=== PATIENT | male | born 1935 | race Caucasian/White ===

== ENCOUNTER 2016-06-08 23:42 | Emergency (ER) | END 2016-06-09 01:41 | disposition home or self-care (01) | DX: I10 Essential (primary) hypertension (principal); Z79.82 Long term (current) use of aspirin; Z87.891 Personal history of nicotine dependence ==

== ENCOUNTER 2016-12-14 20:27 | Emergency (ER) | END 2016-12-14 23:00 | disposition home or self-care (01) | DX: J30.9 Allergic rhinitis, unspecified (principal); I10 Essential (primary) hypertension; Z79.82 Long term (current) use of aspirin; Z87.891 Personal history of nicotine dependence ==

== ENCOUNTER 2017-11-04 17:51 | Emergency (ER) | END 2017-11-04 20:55 | disposition home or self-care (01) ==

== ENCOUNTER 2017-11-09 15:51 | Emergency (ER) | END 2017-11-09 18:00 | disposition home or self-care (01) ==

== ENCOUNTER 2017-11-15 20:29 | Emergency (ER) | END 2017-11-15 21:00 | disposition left against medical advice (07) ==

== ENCOUNTER 2018-10-27 13:59 | Emergency (ER) | payer OTHER, MEDICARE ==
[~2018-10-27] VITALS: Wt 63.2 kg
[~2018-10-27 13:59] MED LIST: AMLO1CAP70 PO; ASPI-535 PO; CETI10CA PO; CLON-379 PO; EZET10TA31 PO; FLUT9.9S NASAL; METO-448 PO; VALS1TAB60 PO
[2018-10-27 16:00] VITALS: BP 125/86; PULSE 77; RESP 18
--- NOTE | 2018-10-27 16:50 | ERD ---
ER Documentation Chief Complaint Chief Complaint ANXIETY AND STRESSED FROM A PHONE CALL THAT STATES HPI 83-year-old male who presents to the emergency room stating that he is anxious. He states that earlier today he received a phone call from an unknown caller who told him that he was going to today and that people were coming to get him and throw him in a rendon. Patient otherwise states that he feels fine. He denies any other auditory or visual hallucinations. He denies any headache chest pain or shortness of breath. No fevers or chills. He denies any suicidal or homicidal ideation. Patient arrives by himself. Initially he states that he lives alone but then remembers that he lives with his son. Remainder of HPI is somewhat limited. ROS All systems reviewed and are negative except as per history of present illness. Medications Home Meds Discontinued Reported Medications Clonidine Hcl* (Clonidine Hcl*) 0.1 Mg Tab, 0.1 MG PO Q 8 HRS PRN 05/26/12 Amlodipine Besylate/Benazepril (Lotrel 10-20 Mg Capsule) 1 Cap Capsule, 1 CAP PO DAILY 05/26/12 Valsartan-Hydrochlorothiazide (Diovan HCT) 1 Tab Tablet, 1 TAB PO DAILY 05/26/12 Aspirin Ec (Aspir 81) 81 Mg Tablet.dr, 81 MG PO 07/19/11 Metoprolol Tartrate* (Lopressor*) 25 Mg Tab, 50 MG PO BID, 0 Refills 07/19/11 Ezetimibe* (Zetia*) 10 Mg Tablet, 10 MG PO 07/19/11 Discontinued Scripts Cetirizine Hcl* (Zyrtec*) 10 Mg Capsule, 10 MG PO DAILY, #30 TAB.CHEW Prov:ZARINA RODRIGUEZ NP 12/14/16 Fluticasone Propionate (Flonase Allergy Relief) 9.9 Ml [place].susp, 1 SPRAY NASAL BID, #1 BOTTLE TO EACH NOSTRIL Prov:ZARINA RODRIGUEZ NP 12/14/16 Allergies Allergies: Coded Allergies: No Known Allergy (Unverified , 10/27/18) PMhx/Soc History of Surgery: Yes (HERNIA) Anesthesia Reaction: No Hx Neurological Disorder: Yes (CVA) Hx Respiratory Disorders: No Hx Cardiac Disorders: Yes (HTN, DYSLIPIDEMIA) Hx Psychiatric Problems: No Hx Miscellaneous Medical Probl: No Hx Alcohol Use: No Hx Substance Use: No Hx Tobacco Use: Yes Smoking Status: Current every day smoker FmHx Family History: No diabetes Physical Exam Vitals Vital Signs Date Temp Pulse Resp B/P (MAP) Pulse Ox O2 O2 Flow FiO2 Time Delivery Rate 10/27/18 98.2 77 18 125/86 100 16:00 (99) 10/27/18 98.2 87 18 125/86 100 14:02 (99) Physical Exam General: Well developed, well nourished, no acute distress Head: Normocephalic, atraumatic. Eyes: Pupils equally reactive, EOM intact ENT: Moist mucous membranes Neck: Supple, no lymphadenopathy Respiratory: Lungs clear bilaterally, no distress Cardiovascular: RRR, no murmurs, rubs, or gallops Abdominal: Soft, non-tender, non-distended, no peritoneal signs : Deferred MSK: No edema, no unilateral swelling, 5/5 strength Neurologic: Alert and oriented to person and place. He thinks that it is 2008 and september, moving all extremities, normal speech, no focal weakness, no cerebellar signs, no broad-based gait Skin: No rash Psych: Moderate insight, denies suicidal homicidal ideation. Result Diagram: 10/27/18 1522 10/27/18 1522 Results 24 hrs Laboratory Tests Test 10/27/18 15:22 White Blood Count 8.3 10^3/ul Red Blood Count 5.00 10^6/ul Hemoglobin 14.3 g/dl Hematocrit 42.0 % Mean Corpuscular Volume 84.0 fl Mean Corpuscular Hemoglobin 28.6 pg Mean Corpuscular Hemoglobin Concent 34.0 g/dl Red Cell Distribution Width 12.5 % Platelet Count 223 10^3/UL Mean Platelet Volume 10.3 fl Immature Granulocytes % 0.200 % Neutrophils % 65.1 % Lymphocytes % 27.3 % Monocytes % 6.1 % Eosinophils % 0.6 % Basophils % 0.7 % Nucleated Red Blood Cells % 0.0 /100WBC Immature Granulocytes # 0.020 10^3/ul Neutrophils # 5.4 10^3/ul Lymphocytes # 2.3 10^3/ul Monocytes # 0.5 10^3/ul Eosinophils # 0.1 10^3/ul Basophils # 0.1 10^3/ul Nucleated Red Blood Cells # 0.0 10^3/ul Sodium Level 140 mmol/L Potassium Level 3.9 mmol/L Chloride Level 104 mmol/L Carbon Dioxide Level 26 mmol/L Anion Gap 10 Blood Urea Nitrogen 22 mg/dl Creatinine 1.54 mg/dl Est Glomerular Filtrat Rate mL/min mL/min Glucose Level 90 mg/dl Calcium Level 9.7 mg/dl Total Bilirubin 1.9 mg/dl Direct Bilirubin 0.00 mg/dl Indirect Bilirubin 1.9 mg/dl Aspartate Amino Transf (AST/SGOT) 27 IU/L Alanine Aminotransferase (ALT/SGPT) 30 IU/L Alkaline Phosphatase 66 IU/L Troponin I < 0.012 ng/ml Total Protein 6.7 g/dl Albumin 4.1 g/dl Globulin 2.60 g/dl Albumin/Globulin Ratio 1.57 Free Thyroxine Index 3.32 ug/ml Thyroxine (T4) 9.3 ug/dl Triiodothyronine (T3) Uptake 35.7 % Salicylates Level < 1.0 mg/dl Acetaminophen Level < 10.0 ug/ml Ethyl Alcohol Level < 10.0 mg/dl Procedures/MDM EKG, MONITORS, & DIAGNOSTIC IMAGING: CT brain IMPRESSION: 1. No acute intracranial hemorrhage or acute territorial infarct. 2. 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 3. Age related atrophy and small vessel ischemic change. 4. Ventricles are prominent greater than expected for the degree of atrophy. Question communicating hydrocephalus. Consider further evaluation with MRI 5. Cerebral arterial sclerosis CXR Chest x-ray: I reviewed and interpreted a 1 view of the chest Mediastinum: No enlargement Cardiac silhouette: No cardiomegaly Airspace: Clear lung perasud bilaterally without evidence of pneumothorax Bones: No evidence of fracture EKG: I reviewed and interpreted a 12-lead EKG. Rhythm: Normal sinus rhythm ST Changes: No contiguous ST segment elevations T waves: No contiguous T wave inversions Impression: No evidence of acute cardiac ischemia LAB INTERPRETATION: I reviewed the laboratory testing and it shows no evidence of acute process MEDICAL DECISION MAKING: The patient presents with a anxiety reaction secondary to allegedly receiving a phone call from someone who states that he is going to today. This appears to be a fixed delusion. The patient otherwise is well-appearing. He does have some subtle elements of dementia that are underlying. However he arrives alone. I cannot rule out possible grave disability. Further investigation is necessary. The social worker psychiatric was called to the bedside to evaluate the patient. Amatory testing and diagnostic imaging will be ordered to rule out acute medical emergency or process though the patient has a low pretest probability for these processes. ER COURSE: * Laboratory testing is unremarkable. * CT imaging showing possible hydrocephalus. However I spoke to Dr. Swartz, on- call neurosurgeon. We reviewed the case together. He reviewed prior imaging and states that this appears to be consistent with baseline. Additionally at the same time we were able to speak to the patient's son who states that he lives with the patient. 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 He states that this appears to be his baseline. He feels comfortable caring for the patient at home. Based on this conversation, Dr. Morillo feels that this is consistent with his baseline and does not warrant further investigation including MRI imaging at this time. * bee worker involved additionally feels comfortable with the patient has appropriate follow-up and is appropriately cared for at home. * For these reasons the patient does not require psychiatric evaluation. He does not appear to be gravely disabled. He does have a fixed delusion of paranoia but can be followed up on outpatient basis. He appears to be safe at home is not a flight risk and is not dangerous at home. CONSULTATION: bee worker, neurosurgery as documented above DISPOSITION PLAN: The patient does not have an identifiable emergent medical condition that warrants inpatient hospitalization at this time. The patient is deemed safe for discharge with outpatient follow-up. We discussed follow up with the patient's primary care doctor within 24 to 48 hours as needed. We also discussed return to the emergency room for worsening symptoms or worsening condition. Outpatient referral: None required Discharge Medications: None required Departure Diagnosis: Primary Impression: Anxiety reaction Additional Impressions: Delusion Chronic renal insufficiency Chronic kidney disease stage: unspecified stage Qualified Codes: N18.9 - Chronic kidney disease, unspecified Condition: KAREEM Guerrero MD Oct 27, 2018 16:50
== END 2018-10-27 17:54 | disposition home or self-care (01) ==
LOC: E/R 13:59
DX: F41.1 Generalized anxiety disorder (principal); F22 Delusional disorders; I10 Essential (primary) hypertension; F17.210 Nicotine dependence, cigarettes, uncomplicated; R41.82 Altered mental status, unspecified; N28.9 Disorder of kidney and ureter, unspecified; Z86.73 Personal history of transient ischemic attack (TIA), and cerebral infarction without residual deficits; Z79.82 Long term (current) use of aspirin
CPT/HCPCS: 70450; 71045; 80053; 80307; 81003; 84436; 84479; 84484; 85025; 93005; Z7502

== ENCOUNTER 2018-11-08 23:34 | Emergency (ER) | payer MEDICARE, OTHER ==
[~2018-11-08] VITALS: Ht 157.5 cm; Wt 49.8 kg
[2018-11-08 23:36] VITALS: BP 152/82; PULSE 58; RESP 18; Ht 157.5 cm; Wt 49.8 kg
--- NOTE | 2018-11-09 05:10 | ERD ---
ER Documentation Chief Complaint Chief Complaint LAC TO RIGHT TOES, CONTINUED BLEEDING HPI 83-year-old male with past medical history of hypertension, CVA who presents with complaint of right second toe pain. Patient accompanied by family member who states patient was attempted to cut his own nail when he caused an injury to his second and third toe. Since that time been having bleeding to site. At time of evaluation bleeding has ceased. Patient otherwise denies history of diabetes, fever, chills, chest pain, shortness of breath, dyspnea, nausea, vomiting, diarrhea, abdominal pain, recent illness. ROS All systems reviewed and are negative except as per history of present illness. Allergies Allergies: Coded Allergies: No Known Allergy (Unverified , 10/27/18) PMhx/Soc History of Surgery: Yes (HERNIA) Anesthesia Reaction: No Hx Neurological Disorder: Yes (CVA) Hx Respiratory Disorders: No Hx Cardiac Disorders: Yes (HTN, DYSLIPIDEMIA) Hx Psychiatric Problems: No Hx Miscellaneous Medical Probl: No Hx Alcohol Use: No Hx Substance Use: No Hx Tobacco Use: Yes Smoking Status: Current every day smoker FmHx Family History: coronary disease Physical Exam Vitals Vital Signs Date Temp Pulse Resp B/P (MAP) Pulse Ox O2 O2 Flow FiO2 Time Delivery Rate 11/08/18 97.4 58 18 152/82 99 23:36 (105) Physical Exam I have reviewed the triage vital signs. Const: Well nourished, well developed, appears stated age Eyes: PERRL, no conjunctival injection HENT: NCAT, Neck supple without meningismus CV: RRR, Warm, well-perfused extremities RESP: CTAB, Unlabored respiratory effort GI: soft, non-tender, non-distended, no masses MSK: No gross deformities appreciated Skin: Warm, dry. No rashes Right second and third toe with dried blood, second toe with half of nail removed, patient able to wiggle all toes, no lacerations, distal pulses strong, SI LT throughout Neuro: grossly non focal Psych: Appropriate mood and affect. Procedures/MDM 83-year-old male with bleeding to 2 toes on the right foot after trying to cut his own toenails. Patient has half of one toenail and second toe removed. Bleeding at time of examination at completely stopped. Patient neurovascularly intact. No evidence of injury requiring repair in the emergency room. Patient family member and patient advised to seek assistance with foot care. Patient advised follow-up with PMD. I have low suspicion for any acute infection or any other emergent process warranting further emergent care or work-up. Area of injury bandaged and cleaned in ED. DISPOSITION PLAN: We discussed follow up with the patient's primary care doctor within 24 to 48 hours. Patient counseled regarding my diagnostic impression and care plan. Prior to discharge all questions answered. Pt agrees with treatment plan and understands strict return precautions. Precautionary instructions provided including instructions to return to the ER if not improving or for any worsening or changing symptoms or concerns. Disclaimer: Inadvertent spelling and grammatical errors are likely due to EHR/dictation software use and do not reflect on the overall quality of patient care. Also, please note that the electronic time recorded on this note does not necessarily reflect the actual time of the patient encounter. Departure Diagnosis: Primary Impression: Foot abrasion, non-infected Condition: Stable Patient Instructions: Ingrown Toenail, No Infect ([facility]) Additional Instructions: Call your primary care doctor TOMORROW for an appointment during the next 2-3 days.See the doctor sooner or return here if your condition worsens before your appointment time. JHON ANAND PA-C Nov 09, 2018 05:10
== END 2018-11-09 05:20 | disposition home or self-care (01) ==
LOC: FTE 23:34
DX: S90.414A Abrasion, right lesser toe(s), initial encounter (principal); I10 Essential (primary) hypertension; X58.XXXA Exposure to other specified factors, initial encounter; Y92.9 Unspecified place or not applicable; Z86.73 Personal history of transient ischemic attack (TIA), and cerebral infarction without residual deficits
CPT/HCPCS: 99282